=== PATIENT | female | born 1960 ===

== ENCOUNTER 2025-07-05 08:00 | Outpatient (CLI) | payer OTHER ==
[~2025-07-05] VITALS: Ht 165.1 cm; Wt 51.3 kg
[2025-07-05 08:18] VITALS: BP 132/74
[2025-07-05] MEDS ORDERED: MULTI-VITAMIN1 EACH PO (08:18)
[2025-07-05] MEDS ORDERED: SIMVASTATIN5 MG (08:19)
[2025-07-05] MEDS ORDERED: GINGER500 MG (08:19)
[2025-07-05] MEDS ORDERED: BEET ROOT500 MG (08:19)
[2025-07-05 08:59] LABS: INR 0.99
== END 2025-07-05 08:30 | disposition home or self-care (01) ==
LOC: RAD 08:00 → CIR.AMB 07-16 07:15 → EDSTATUS 07-16 07:15 → CIR.AMB 07-16 08:30 → RAD 08-12 14:48
PROVIDERS: ATTEND Specialist
DX: N60.81 Other benign mammary dysplasias of right breast (principal)